=== PATIENT | male | born 1950 | race Caucasian/White ===

== ENCOUNTER 2018-08-08 11:53 | Day surgery (SDC) | payer MEDICARE, SELFPAY ==
[2018-08-08 12:17] VITALS: BP 149/78; PULSE 70; RESP 16; TEMP 36.7; O2SAT 98; BMI 61.0
[2018-08-08] MEDS: SODIUM CHLORIDE 0.9% 1,000 ML 200 ML IV (12:33)
--- NOTE | 2018-08-08 12:33 | PM.HP.1 ---
History of Present Illness Date Patient Seen: 08/08/18 Time Patient Seen: 12:34 Chief complaint: Endoscopy Narrative: 68-year-old white male asymptomatic no hematochezia and no melena no abdominal pain he is here for a screening colonoscopy. He has had a previous colonoscopy and has had no polyps. No history of colon malignancy. Patient History Social History household members: spouse Family & Social History Social History: household members spouse Meds Home Medications Medication Instructions Recorded Confirmed Type allopurinol 300 mg PO QDAY #90 tab 07/16/17 08/08/18 Rx Allergies Allergy/AdvReac Type Severity Reaction Status Date / Time pollen extracts Allergy Mild SNEEZING Verified 08/08/18 12:14 [POLLEN EXTRACTS] Exam Vital Signs (past 8 hours): - 08/08/18 12:17 Temperature 98.0 F Pulse Rate 70 Respiratory Rate 16 Blood Pressure 149/78 H Pulse Oximetry 98 Oxygen Delivery Method Room Air Narrative Exam Narrative: Vital signs are stable. Patient is alert and oriented. Lungs are clear to auscultation and percussion. Heart regular rhythm no murmur no gallop. Abdomen soft no masses no tenderness. Rectal will be done at time of colonoscopy. Assessment & Plan Assessment & Plan narrative: Asymptomatic patient is here for a colonoscopy screening. Patient understands the risks which have been explained and agrees and has no further questions.
[2018-08-08] MEDS: MIDAZOLAM 5 MG/5 ML VIAL IV (13:05)
[2018-08-08] MEDS: fentaNYL 250 MCG/5 ML INJ IV (13:05)
[2018-08-08 13:06] VITALS: BP 108/67; PULSE 63; RESP 15; TEMP 36.7; O2SAT 98
--- NOTE | 2018-08-08 13:06 | PM.OP.1 ---
Operative Date/Time/Diagnoses Date of procedure: 08/08/18 Time of procedure: 13:06 Pre-op diagnosis: Screening colonoscopy Post-op diagnosis: same Procedure & Clinicians Procedure: Screening colonoscopy to the cecum Same procedure as scheduled: Yes Click Yes if Unassisted: Yes Anesthesia Type: Sedation Operative Notes Findings: Normal colon. Closure Type: not applicable Specimen(s): none sent Blood products transfused: none Procedure in detail: Patient is properly identified during surgical pause given conscious sedation with a total of 150 of fentanyl and 4 mg of Versed the flexible fiberoptic colonoscope was inserted transanally to the cecum. The exam was entirely normal. There is no polyp there are no tumors there are no ulcerations there were no diverticuli the procedure was very well tolerated several photographs of normal anatomy were taken. Complications: none Condition: stable Disposition: PACU
[2018-08-08 13:16] VITALS: BP 107/65; PULSE 62; RESP 15; O2SAT 97
[2018-08-08 13:17] VITALS: BP 109/61; PULSE 64; RESP 16; O2SAT 98
[2018-08-08 13:21] VITALS: BP 103/68; PULSE 66; RESP 15; TEMP 36.5; O2SAT 98
[2018-08-08 13:30] VITALS: BP 100/62; PULSE 58; RESP 16; TEMP 36.7; O2SAT 97
== END 2018-08-08 13:45 | disposition home or self-care (01) ==
PROVIDERS: PCP Family Medicine; Visit Provider Surgery
PROC: 0DJD8ZZ Inspection of Lower Intestinal Tract, Via Natural or Artificial Opening Endoscopic (ICD-10-PCS; CPT 45378; principal; 2018-08-08 13:00)
DX: Z12.11 Encounter for screening for malignant neoplasm of colon (principal)
CPT/HCPCS: G0121; J2250; J3010

== ENCOUNTER → 2021-07-14 07:03 | Outpatient (CLI) | payer MEDICARE, SELFPAY ==
--- NOTE | 2021-07-14 07:26 | DI.RAD.S_ITS ---
PROCEDURE: XR LUMBAR SPINE 2-3V INDICATIONS: rt leg ridculopathy TECHNIQUE: 3 views of the lumbar spine were acquired. COMPARISON: [facility], , L-SPINE 2-3 VIEWS, 05/27/2016, 7:42. FINDINGS: Bones: 5 [id number] vertebrae are present. There is normal bony alignment. No vertebral body compression fractures. No suspicious bony lesions. Multilevel disc height loss with endplate sclerosis and spurring, most notably and moderate at the L4-L5 and L5-S1. Mild L4-L5 and L5-S1 facet joint arthropathy. Soft tissues: Overlying bowel gas pattern is normal. No suspicious soft tissue calcifications. IMPRESSION: Multilevel degenerative disc and facet disease, most notably at the L4-L5 and L5-S1 levels. Dictated by: Maxim COBOS Interpreted: Randall Mcguire MD on 07/14/2021 at 10:19 Transcribed by: MARIYA on 07/14/2021 at 10:20 Approved by: Randall Mcguire M.D. on 07/14/2021 at 15:52
[2021-07-14 08:16] LABS: Add Manual Diff / Slide Review NO; Basophils Absolute Auto 0 /uL (0-100); Basophils Percent Auto 0.8 % (0-2); Eosinophils Absolute Auto 300 /uL (0-450); Eosinophils Percent Auto 5.5 % (2-4); Hematocrit 42.5 % (41-53); Hemoglobin 14.4 g/dL (13.5-17.5); Lymphocytes Absolute Auto 1800 /uL (1100-4500); Lymphocytes Percent Auto 38.5 % (25-40); Mean Corpuscular Hemoglobin 34.1 PG (26-34); Mean Corpuscular Volume 100.3 fL (80-100); Monocytes Absolute Auto 500 /uL (0-900); Monocytes Percent Auto 10.2 % (3-14); Neutrophils Absolute Auto 2100 /uL (1500-7000); Platelet Count 146 X10^3/uL (150-400); Red Blood Cell Count 4.24 X10^6/uL (4.5-5.9); White Blood Cell Count 4.6 X10^3/uL (4.5-11.0)
[2021-07-14 08:49] LABS: Alanine Aminotransferase 9 IU/L (<50); Albumin 3.9 g/dL (3.5-5.0); Albumin Globulin Ratio 1.5 (1.0-2.8); Alkaline Phosphatase 85 U/L (38-126); Aspartate Aminotransferase 27 IU/L (17-59); BUN Creatinine Ratio 14.9 (6-22); Bilirubin Total 0.7 mg/dL (0.2-1.3); Blood Urea Nitrogen 17 mg/dL (9-20); Carbon Dioxide 28 mmol/L (22-32); Chloride 105 mmol/L (98-107); Cholesterol 177 mg/dL (140-199); Estimated Glomerular Filt Rate > 60.0 mL/min (>60); Globulin 2.6 g/dL (1.7-4.1); Glucose 91 mg/dL (80-110); HDL Cholesterol 56 mg/dL (40-60); HEMOLYSIS < 15 (0-50); LDL Cholesterol Calculated 105 mg/dL (<100); Potassium 4.6 mmol/L (3.4-5.1); Sodium 138 mmol/L (137-145); Total Protein 6.5 g/dL (6.3-8.2); Triglycerides 78 mg/dL (35-150)
[2021-07-14 09:10] LABS: Prostate Specific Antigen 0.466 ng/mL (0.10-4.00)
== END ==
PROVIDERS: PCP Family Medicine; Referring Provider Family Medicine; Visit Provider Family Medicine
DX: E78.00 Pure hypercholesterolemia, unspecified (principal); M1A.00X0 Idiopathic chronic gout, unspecified site, without tophus (tophi); Z12.5 Encounter for screening for malignant neoplasm of prostate
CPT/HCPCS: 36415; 72100; 80053; 80061; 84153; 85025; G0103

== ENCOUNTER → 2023-04-19 07:08 | Outpatient (CLI) | payer MEDICARE, SELFPAY ==
[2023-04-19 08:24] LABS: Add Manual Diff / Slide Review NO; Basophils Absolute Auto 0 /uL (0-100); Basophils Percent Auto 0.8 % (0-2); Eosinophils Absolute Auto 200 /uL (0-450); Eosinophils Percent Auto 4.1 % (2-4); Hematocrit 42.4 % (41-53); Hemoglobin 14.4 g/dL (13.5-17.5); Lymphocytes Absolute Auto 2100 /uL (1100-4500); Lymphocytes Percent Auto 42.9 % (25-40); Mean Corpuscular Hemoglobin 33.5 PG (26-34); Mean Corpuscular Volume 98.7 fL (80-100); Monocytes Absolute Auto 600 /uL (0-900); Neutrophils Absolute Auto 2100 /uL (1500-7000); Neutrophils Percent Auto 41.2 % (50-75); Platelet Count 146 X10^3/uL (150-400); Red Cell Distribution Width 12.5 % (11.6-14.8)
[2023-04-19 08:39] LABS: Alanine Aminotransferase 11 IU/L (<50); Albumin 3.9 g/dL (3.5-5.0); Albumin Globulin Ratio 1.4 (1.0-2.8); Alkaline Phosphatase 80 U/L (38-126); Aspartate Aminotransferase 28 IU/L (17-59); BUN Creatinine Ratio 18.2 (6-22); Bilirubin Total 0.8 mg/dL (0.2-1.3); Blood Urea Nitrogen 20 mg/dL (9-20); Calcium 9.5 mg/dL (8.4-10.2); Carbon Dioxide 25 mmol/L (22-32); Chloride 105 mmol/L (98-107); Cholesterol 185 mg/dL (140-199); Estimated Glomerular Filt Rate > 60 mL/min (>60); Globulin 2.8 g/dL (1.7-4.1); Glucose 84 mg/dL (80-110); HDL Cholesterol 55 mg/dL (40-60); HEMOLYSIS < 15 (0-50); LDL Cholesterol Calculated 113 mg/dL (<100); Potassium 4.6 mmol/L (3.4-5.1); Sodium 136 mmol/L (137-145); Total Protein 6.7 g/dL (6.3-8.2); Triglycerides 83 mg/dL (35-150)
[2023-04-19 09:03] LABS: TSH w/ Reflex to FT4 1.75 uIU/mL (0.47-4.68)
[2023-04-19 09:05] LABS: Prostate Specific Antigen Scrn 0.646 ng/mL (0.1-4.0)
== END ==
PROVIDERS: PCP Family Medicine; Referring Provider Family Medicine; Visit Provider Family Medicine
DX: E78.00 Pure hypercholesterolemia, unspecified (principal); Z12.5 Encounter for screening for malignant neoplasm of prostate; E78.5 Hyperlipidemia, unspecified
CPT/HCPCS: 36415; 80053; 80061; 84443; 85025; G0103

== ENCOUNTER → 2024-08-10 08:50 | Outpatient (CLI) | payer MEDICARE, SELFPAY ==
[2024-08-10 09:47] LABS: Add Manual Diff / Slide Review NO; Basophils Absolute Auto 0 /uL (0-100); Basophils Percent Auto 0.7 % (0-2); Eosinophils Absolute Auto 200 /uL (0-450); Eosinophils Percent Auto 2.9 % (2-4); Hematocrit 42.9 % (41-53); Hemoglobin 14.5 g/dL (13.5-17.5); Lymphocytes Absolute Auto 1700 /uL (1100-4500); Lymphocytes Percent Auto 31.5 % (25-40); Mean Corpuscular HGB Conc 33.9 % (30-36); Mean Corpuscular Hemoglobin 33.3 PG (26-34); Mean Corpuscular Volume 98.5 fL (80-100); Monocytes Absolute Auto 500 /uL (0-900); Monocytes Percent Auto 10.3 % (3-14); Neutrophils Absolute Auto 2900 /uL (1500-7000); Neutrophils Percent Auto 54.6 % (50-75); Platelet Count 161 X10^3/uL (150-400); Red Blood Cell Count 4.35 X10^6/uL (4.5-5.9); Red Cell Distribution Width 13.1 % (11.6-14.8); White Blood Cell Count 5.3 X10^3/uL (4.5-11.0)
[2024-08-10 10:12] LABS: Alanine Aminotransferase 12 IU/L (<50); Albumin Globulin Ratio 1.7 (1.0-2.8); Alkaline Phosphatase 91 U/L (38-126); Aspartate Aminotransferase 28 IU/L (17-59); BUN Creatinine Ratio 12.6 (6-22); Bilirubin Total 0.8 mg/dL (0.2-1.3); Blood Urea Nitrogen 15 mg/dL (9-20); Calcium 8.9 mg/dL (8.4-10.2); Carbon Dioxide 22 mmol/L (22-32); Chloride 106 mmol/L (98-107); Cholesterol 196 mg/dL (140-199); Estimated Glomerular Filt Rate > 60 mL/min (>60); Globulin 2.4 g/dL (1.7-4.1); Glucose 98 mg/dL (80-110); HDL Cholesterol 61 mg/dL (40-60); HEMOLYSIS < 15 (0-50); LDL Cholesterol Calculated 120 mg/dL (<100); Potassium 4.2 mmol/L (3.4-5.1); Sodium 136 mmol/L (137-145); Total Protein 6.4 g/dL (6.3-8.2); Triglycerides 75 mg/dL (35-150)
[2024-08-10 10:39] LABS: TSH w/ Reflex to FT4 1.75 uIU/mL (0.47-4.68)
== END ==
PROVIDERS: PCP Family Medicine; Referring Provider Family Medicine; Visit Provider Family Medicine
DX: E78.00 Pure hypercholesterolemia, unspecified (principal); Z12.5 Encounter for screening for malignant neoplasm of prostate; M1A.00X0 Idiopathic chronic gout, unspecified site, without tophus (tophi); I10 Essential (primary) hypertension
CPT/HCPCS: 36415; 80053; 80061; 84443; 85025; G0103